=== PATIENT | male | born 1965 | race Caucasian/White ===

== ENCOUNTER → 2016-10-17 | Outpatient (CLI) | payer BC ==
--- NOTE | 2016-10-17 15:49 | XR ---
EXAMINATION TYPE: XR chest 2V DATE OF EXAM: 10/17/2016 2:54 PM COMPARISON: Prior chest x-ray 02 November 2013 HISTORY: Acute bronchitis, asthma TECHNIQUE: Frontal and lateral views of the chest are obtained. FINDINGS: There is no focal air space opacity, pleural effusion, or pneumothorax seen. The cardiac silhouette size is within normal limits. Surgical clips are present in the right upper quadrant. The patient is rotated. There may be a spinal curvature. There is bronchial wall thickening. The osseou s structures are intact. IMPRESSION: Consider reactive airways disease, bronchitis, follow-up as indicated
== END | disposition home or self-care (01) ==
LOC: RADXRMAIN 14:43
PROVIDERS: ATTEND Family Medicine
DX: J20.8 Acute bronchitis due to other specified organisms (principal); J45.909 Unspecified asthma, uncomplicated
CPT/HCPCS: 71020

== ENCOUNTER → 2017-03-24 | Outpatient (CLI) | payer BC ==
--- NOTE | 2017-03-24 14:33 | US ---
EXAMINATION TYPE: US thyroid st tissue head/neck DATE OF EXAM: 03/24/2017 COMPARISON: NONE CLINICAL HISTORY: E04.1 THYROID NODULE. GLAND SIZE: Right Lobe: 4.9 x 1.8 x 1.5 cm Overall Parenchyma: homogenous Left Lobe: 4.6 x 1.3 x 1.3 cm Overall Parenchyma: homogeneous Isthmus Thickness: 0.4 cm NODULES RIGHT: # of nodules measured on right: 0 LEFT: # of nodules measured on left: 0 ISTHMUS: # of nodules measured in the isthmus: 0 Bilateral neck scanned, no evidence of lymphadenopathy. Patient also feels palpable area midline slig htly superior to thyroid gland. This area was scanned and no abnormality noted. IMPRESSION: Unremarkable thyroid ultrasound with no sonographic correlate to the patient's palpable abnormality.
== END | disposition home or self-care (01) ==
LOC: RADUSWWP 13:58
PROVIDERS: ATTEND Family Medicine
DX: E04.1 Nontoxic single thyroid nodule (principal)
CPT/HCPCS: 76536

== ENCOUNTER → 2018-09-18 | Outpatient (CLI) | payer BC ==
--- NOTE | 2018-09-18 10:17 | CT ---
EXAMINATION TYPE: CT abdomen pelvis wo/w con DATE OF EXAM: 09/18/2018 COMPARISON: None. HISTORY: Abdominal pain not further specified per order. CT DLP: 1280.9 mGycm, Automated Exposure Control for Dose Reduction was Utilized. CONTRAST: CT scan of the abdomen and pelvis is performed with oral and without and with IV Contrast, patient in jected with 100 mL of Isovue 300. FINDINGS: LUNG BASES: There is right coronary artery calcification and/or stent. LIVER/GB: Cholecystectomy clips are present. Subcentimeter hypodense lesion right hepatic lobe anteri jhonatan axial image 30 is too small to further characterize but presumed benign. PANCREAS: No significant abnormality is seen. SPLEEN: No significant abnormality is seen. ADRENALS: No significant abnormality is seen. KIDNEYS: Focal cortical thinning or old infarct laterally mid to lower pole level left kidney is pres ent. There is symmetric cortical medullary uptake and excretion from both kidneys without evidence of concerning solid or cystic renal mass or hydronephrosis bilaterally. No calculi are seen on noncontr ast CT BOWEL: There is 1.6 cm diverticulum medially along second portion of duodenum coronal image 42. Oral contrast reaches level of the proximal sigmoid colon. Appendix felt within normal limits from base of cecum in the upper right pelvis. There is no suspicious small or large bowel dilatation. PROSTATE/SEMINAL VESICLES: Prostate gland is enlarged in size bulging on bladder base, underlying BPH is felt present, correlate clinically. LYMPH NODES: No greater than 1cm abdominal or pelvic lymph nodes are appreciated. OSSEOUS STRUCTURES: There is vacuum disc phenomenon with moderate disc space narrowing L4-L5 level. T here is vacuum disc phenomenon with advanced disc space narrowing L5-S1 level. There is facet arthrop athy in the lower lumbar levels. OTHER: There are moderate sized fat-containing bilateral inguinal hernias. IMPRESSION: 1. No suspicious acute finding is seen to account for patient's symptoms of abdominal pain.
== END ==
LOC: RADCTMAIN 07:14
PROVIDERS: ATTEND Family Medicine
DX: R10.9 Unspecified abdominal pain (principal)
CPT/HCPCS: 74178; Q9967

== ENCOUNTER → 2018-09-20 | Outpatient (CLI) | payer BC ==
--- NOTE | 2018-09-20 10:56 | XR ---
EXAMINATION TYPE: XR lumbosacral spine min 4V DATE OF EXAM: 09/20/2018 COMPARISON: None HISTORY: Low back pain TECHNIQUE: Five-view lumbar spine FINDINGS: There is narrowing of the disc height at L4-5 L5-S1. Mild narrowing of disc height is prese nt. Facet degenerative changes present L4-5 L5-S1. Remaining disc heights are preserved. Vertebral body heights are preserved. Alignment is normal. IMPRESSION: 1. Degenerative disc changes L3-4 through L5-S1. 2. Mild degenerative facet changes L4-5 L5-S1.
== END | disposition home or self-care (01) ==
LOC: RADXRMAIN 10:19
PROVIDERS: ATTEND Family Medicine
DX: M51.37 Other intervertebral disc degeneration, lumbosacral region (principal); M47.817 Spondylosis without myelopathy or radiculopathy, lumbosacral region
CPT/HCPCS: 72110

== ENCOUNTER → 2021-04-19 | Outpatient (CLI) | payer OTHER ==
--- NOTE | 2021-04-19 15:22 | XR ---
EXAMINATION TYPE: XR cervical spine comp DATE OF EXAM: 04/19/2021 CLINICAL HISTORY: pain COMPARISON: NONE TECHNIQUE: Frontal, lateral, oblique, swimmers, and open mouth view of the cervical spine are obtaine d. FINDINGS: The cervical spine is visualized in its entirety from C1 thru the top of T1 level. It is s atisfactory in alignment without evidence of acute fracture or dislocation. The pre-vertebral soft t issue appears within normal limits. Moderate multilevel degenerative displacement and spondylosis. Th e C1-C2 articulation is unremarkable on the open mouth view. The oblique images are within normal li mits. IMPRESSION: No acute fracture or dislocation is seen in the cervical spine.ICD 10 NO FRACTURE, INITI AL EVALUATION
== END | disposition home or self-care (01) ==
LOC: RADXRMAIN 14:58
PROVIDERS: ATTEND Emergency Medicine
DX: M54.2 Cervicalgia (principal)
CPT/HCPCS: 72050

== ENCOUNTER → 2021-04-23 | Outpatient (CLI) | payer OTHER ==
--- NOTE | 2021-04-23 08:57 | MR ---
MRI CERVICAL SPINE: CLINICAL HISTORY: Neck pain into shoulder and left arm and fingers after twisting injury. TECHNIQUE: Multiplanar, multisequence imaging of the cervical spine is performed without IV contrast. COMPARISON: Cervical spine x-ray 4 days ago. FINDINGS: Sagittal images of the cervical spine show the craniocervical junction to appear within nor mal limits. The cervical and upper thoracic spinal cord is normal in caliber and signal. Loss of nor mal cervical curvature redemonstrated. Slight grade 1 retrolisthesis C4 on C5 and C5 on C6 again seen . [id number]-[id number] disc space narrowing and anterior spurring at these levels redemonstrated. The ve rtebral body heights remain normal. Some heterogeneous increased T1 and T2 signal in the upper cervic al spine and clivus noted, suspected fatty infiltration or diffuse Modic type III changes. Axial images at C2-C3 level shows some left-sided uncovertebral facet degenerative change causing mil d left-sided neural foraminal narrowing. Axial images at C3-C4 level showed broad based posterior disc protrusion and uncovertebral facet dege nerative changes bilaterally. There is minimal effacement of the anterior thecal sac, there is mild r ight and more moderate left-sided neural foraminal narrowing. Axial images at the C4-C5 level showed broad based left paracentral disc protrusion and uncovertebral facet degenerative changes bilaterally, there is moderate right greater than left bilateral neural f oraminal narrowing at this level as the disc herniation is more prominent. Axial images at C5-C6 level shows spondylolisthesis and broad-based disc protrusion with left foramin al extension on image 31, this effaces the anterior thecal sac and causes moderate right lung with se forest left-sided neural foraminal narrowing. Axial images at C6-C7 level shows broad-based posterior disc protrusion causing asymmetric mild left greater than right bilateral neural foraminal narrowing and minimal effacement anterior thecal sac. Axial images at C7-T1 levels are within normal limits. IMPRESSION: Straightening of cervical spine with multilevel degenerative changes as detailed above. M ost prominent findings noted at C4-C5 and C5-C6 levels.
== END | disposition home or self-care (01) ==
LOC: RADMRIMAIN 08:00
PROVIDERS: ATTEND Emergency Medicine
DX: M50.123 Cervical disc disorder at C6-C7 level with radiculopathy (principal); M99.71 Connective tissue and disc stenosis of intervertebral foramina of cervical region
CPT/HCPCS: 72141

== ENCOUNTER 2021-06-22 08:29 | Day surgery (SDC) | payer BC ==
[2021-06-21 08:59] VITALS: BMI 27.4
[~2021-06-22 08:29] MED LIST: LACTATED RINGERS 1,000 ML IV SCH; LIDOCAINE 1% (10MG/ML) FOR IV START INTRADERMA PRN
[2021-06-22 08:59] VITALS: RESP 16; TEMP 97
[2021-06-22] MEDS ORDERED: PROPOFOL 10 MG/ML 20 ML VIAL IV ONE (09:14)
[2021-06-22] MEDS ORDERED: LIDOCAINE 1% INJ 10MG/ML (20 ML MDV) ONE (09:14)
--- NOTE | 2021-06-22 09:16 | P.GSHP ---
History of Present Illness H&P Date: 06/22/21 Chief Complaint: Colon cancer screening Patient here today for colonoscopy. He has not had 1 previously. No bowel complaints. No family history of colon cancers Past Medical History Past Medical History: Asthma, Hypertension History of Any Multi-Drug Resistant Organisms: None Reported Past Surgical History: Cholecystectomy Past Anesthesia/Blood Transfusion Reactions: No Reported Reaction Smoking Status: Never smoker - Past Family History Mother Family Medical History: No Reported History Medications and Allergies Home Medications Medication Instructions Recorded Confirmed Type Cetirizine HCl [Zyrtec] 5 mg PO DAILY PRN 06/21/21 06/21/21 History Losartan/Hydrochlorothiazide 1 tab PO DAILY 06/21/21 06/21/21 History [Losartan-Hctz 100-25 mg Tab] Allergies Allergy/AdvReac Type Severity Reaction Status Date / Time No Known Allergies Allergy Verified 06/22/21 08:48 Surgical - Exam Vital Signs Temp Pulse Resp BP Pulse Ox 97.0 F L 75 16 151/86 98 06/22/21 08:56 06/22/21 08:56 06/22/21 08:56 06/22/21 08:56 06/22/21 08:56 Physical exam: General: Well-developed, well-nourished HEENT: Normocephalic, sclerae nonicteric Abdomen: Nontender, nondistended Extremities: No edema Neuro: Alert and oriented Assessment and Plan (1) Colon cancer screening Narrative/Plan: Will proceed with colonoscopy at this time Current Visit: Yes Status: Acute Code(s): Z12.11 - ENCOUNTER FOR SCREENING FOR MALIGNANT NEOPLASM OF COLON SNOMED Code(s): 436763019
--- NOTE | 2021-06-22 09:32 | P.PCN ---
Date of Procedure: 06/22/21 Procedure(s) Performed: PREOPERATIVE DIAGNOSIS: Colon cancer screening POSTOPERATIVE DIAGNOSIS: Mild right-sided colitis, diverticulosis PROCEDURE: Colonoscopy with biopsy ANESTHESIA: [facility] [place] SURGEON: Reynold Lewis M.D. SPECIMENS: Right sided colitis ENDOSCOPIC PROCEDURE: The patient was placed on the endoscopy table in the left decubitus position. The Olympus colonoscope was inserted into the anus and passed under direct visualization to the base of the cecum. The appendiceal orifice was visualized. From that point the scope was slowly withdrawn inspecting all surfaces carefully. There were no neoplastic inflammatory or polypoid lesions throughout the cecum. In the ascending and transverse colon there was mild inflammation of the mucosa with a few superficial ulcerations noted. Biopsies were taken. The remainder of the transverse descending sigmoid and rectum was normal. There was mild left-sided diverticulosis. At the anus the patient was noted to have a small thrombosed external hemorrhoid on the left-hand side. The patient was taken to the recovery room in stable condition per anesthesia guidelines. RECOMMENDATIONS: Await biopsy results. Resume diet. Continue observation of external hemorrhoid.
[2021-06-22 10:05] VITALS: BP 138/89; PULSE 77
== END 2021-06-22 10:26 | disposition home or self-care (01) ==
LOC: ORWHC2ENDO 08:29
PROVIDERS: ATTEND Surgery
DX: Z12.11 Encounter for screening for malignant neoplasm of colon (principal); K52.9 Noninfective gastroenteritis and colitis, unspecified; I10 Essential (primary) hypertension; J45.909 Unspecified asthma, uncomplicated; K64.5 Perianal venous thrombosis; Z90.49 Acquired absence of other specified parts of digestive tract
CPT/HCPCS: 45380; 88305; J2001; J2704

== ENCOUNTER → 2023-02-23 | Outpatient (CLI) | payer BC ==
--- NOTE | 2023-02-23 10:33 | CA ---
Exercise Stress Test Report Name: Roberto Easton Exam Date: 02/23/2023 09:14 Exam Location: [place] Stress Ht (in): 68 Wt (lb): 180 BSA: 1.95 Ordering Phys: Reg Fletcher DO Referring Phys: Reg Fletcher DO Technologist: Jairo Rodriguez Age: 57 Gender: M : 1965 Procedure CPT: Indications: R07.9 CHEST PAIN ICD-10 Codes: Patient History: Medications: BP MED Meds past 24 hrs: Pretest Chest Pain: STRESS TEST Mark Protocol Exercise Duration (min:sec): 09:[address] Depressions (mm): Angina Score: Hernandez Score: Resting HR (bpm): 82 Peak HR (bpm): 142 Resting BP (mmHg): 130 / 87 Peak BP (mmHg): / 84 MPHR: 162 Target HR: 138 % MPHR: 88 METS: 10.3 Total Dose: Peak Dose: Atropine: Double Product: BP Response: Stress Termination: TARGET HR REACHED/MAX EXERTION Stress Symptoms: NO SYMPTOMS Stress Summary: ECG ANALYSIS Resting ECG: Stress ECG: CONCLUSIONS RESTING EKG: Normal sinus rhythm with no significant ST or T- wave changes. Heart rate 79 beats. Patient recieved IV infusion of Lexiscan 0.4mg and at peak infusion STRESS EKG showed: No significant ST-T wave changes diagnostic for ischemia by ST segment analysis ARRYTHMIAS: No ectopic rhythm sustained arrhythmias during the study CONCLUSION: Normal hemodynamic and heart response to Lexiscan infusion. 1. Normal resting EKG 2. Normal EKG response to lexiscan infusion 3. Nuclear perfusion imaging is reported separately by the radiology team. Please refer to that report for complete interpretation of this study. Dr Nikolas Huff (Electronically Signed) Final Date: 23 February 2023 10:33
== END | disposition home or self-care (01) ==
LOC: RADNMMAIN 08:43
PROVIDERS: ATTEND Family Medicine
DX: R07.9 Chest pain, unspecified (principal)
CPT/HCPCS: 93017